=== PATIENT | female | born 1935 | race Asian ===

== ENCOUNTER → 2018-09-19 | Outpatient (CLI) | payer MEDICARE, OTHER ==
[~2018-09-19] MED LIST: ACET-66 PO; AMLO1CAP46 PO; ATEN50TA PO; IBUP-2070 PO; METF-444 PO
[2018-09-19 12:24] LABS: BASOPHILS % (AUTO) 0.8 % (0.0-2.0); EOSINOPHILS % (AUTO) 2.1 % (1.0-6.0); HEMOGLOBIN 15.9 g/dL (12.0-16.0); LYMPHOCYTES # (AUTO) 1.9 K/uL (1.0-4.8); LYMPHOCYTES % (AUTO) 26.7 % (22.0-44.0); MEAN CORPUSCULAR HEMOGLOBIN 33.5 pg (26.0-34.0); MEAN CORPUSCULAR HGB CONC 34.5 G/dL (31.0-37.0); MEAN CORPUSCULAR VOLUME 97 fL (80-100); MONOCYTES # (AUTO) 0.4 K/uL (0.1-1.0); MONOCYTES % (AUTO) 5.8 % (2.0-9.0); NEUTROPHILS # (AUTO) 4.7 K/uL (1.8-7.7); NEUTROPHILS % (AUTO) 64.6 % (40.0-70.0); PLATELET COUNT (AUTO) 306 K/uL (150-450); RED BLOOD CELL COUNT(AUTO) 4.74 MIL/uL (4.00-5.20); RED CELL DISTRIBUTION WIDTH 12.9 % (11.5-14.5)
[2018-09-19 12:51] LABS: ALANINE AMINOTRANSFERASE 21 U/L (12-78); ALKALINE PHOSPHATASE 86 U/L (46-116); ANION GAP 8 mmol/L (8-16); ASPARTATE AMINOTRANSFERASE 22 U/L (15-37); BILIRUBIN,TOTAL 0.7 mg/dL (0.1-1.0); CALCIUM, TOTAL 9.1 mg/dL (8.8-10.5); CARBON DIOXIDE 28 mmol/L (22-29); CHLORIDE 100 mmol/L (98-107); CHOL/HDL RATIO 3.5 (3.9-5.7); CHOLESTEROL 228 mg/dL (131-200); CREATININE 0.76 mg/dL (0.60-1.30); GLOMERULAR FILTR. RATE CALC > 60 mL/min (>60); GLUCOSE,RANDOM 100 mg/dL (70-110); HDL CHOLESTEROL 66 mg/dL (40-60); LDL CHOL (CALC.) 144 mg/dL (0-130); POTASSIUM 3.8 mmol/L (3.5-5.1); SODIUM SERUM 136 mmol/L (136-145); TOTAL PROTEIN, SERUM 8.2 g/dL (6.4-8.2); TRIGLYCERIDES 89 mg/dL (15-150); UREA NITROGEN, BLOOD 13 mg/dL (7-18)
[2018-09-19 12:59] LABS: HEMOGLOBIN A1C 6.6 % (4.5-6.2)
== END | disposition home or self-care (01) ==
LOC: LABPV 11:07
PROVIDERS: ATTEND Internal Medicine
DX: E11.69 Type 2 diabetes mellitus with other specified complication (principal); E78.5 Hyperlipidemia, unspecified
CPT/HCPCS: 82043; 82570; 83036

== ENCOUNTER → 2018-12-16 | Outpatient (CLI) | payer MEDICARE, OTHER ==
[2018-12-16 10:23] LABS: BASOPHILS % (AUTO) 0.8 % (0.0-2.0); EOSINOPHILS % (AUTO) 2.6 % (1.0-6.0); HEMATOCRIT 39.7 % (36-46); HEMOGLOBIN 13.5 g/dL (12.0-16.0); LYMPHOCYTES # (AUTO) 1.5 K/uL (1.0-4.8); LYMPHOCYTES % (AUTO) 23.1 % (22.0-44.0); MEAN CORPUSCULAR HEMOGLOBIN 33.4 pg (26.0-34.0); MEAN CORPUSCULAR VOLUME 98 fL (80-100); MONOCYTES # (AUTO) 0.5 K/uL (0.1-1.0); MONOCYTES % (AUTO) 8.2 % (2.0-9.0); NEUTROPHILS # (AUTO) 4.2 K/uL (1.8-7.7); NEUTROPHILS % (AUTO) 65.3 % (40.0-70.0); PLATELET COUNT (AUTO) 334 K/uL (150-450); RED BLOOD CELL COUNT(AUTO) 4.04 MIL/uL (4.00-5.20); RED CELL DISTRIBUTION WIDTH 12.8 % (11.5-14.5)
[2018-12-16 10:33] LABS: ALANINE AMINOTRANSFERASE 25 U/L (12-78); ALBUMIN 3.6 g/dL (3.4-5.0); ALKALINE PHOSPHATASE 76 U/L (46-116); ANION GAP 6 mmol/L (8-16); ASPARTATE AMINOTRANSFERASE 18 U/L (15-37); BILIRUBIN,TOTAL 0.4 mg/dL (0.1-1.0); CALCIUM, TOTAL 8.7 mg/dL (8.8-10.5); CARBON DIOXIDE 32 mmol/L (22-29); CHLORIDE 103 mmol/L (98-107); CHOL/HDL RATIO 2.9 (3.9-5.7); CHOLESTEROL 172 mg/dL (131-200); CREATININE 0.62 mg/dL (0.60-1.30); GLOMERULAR FILTR. RATE CALC > 60 mL/min (>60); GLUCOSE,RANDOM 184 mg/dL (70-110); HDL CHOLESTEROL 59 mg/dL (40-60); LDL CHOL (CALC.) 93 mg/dL (0-130); POTASSIUM 3.9 mmol/L (3.5-5.1); SODIUM SERUM 141 mmol/L (136-145); TOTAL PROTEIN, SERUM 7.2 g/dL (6.4-8.2); TRIGLYCERIDES 98 mg/dL (15-150); UREA NITROGEN, BLOOD 17 mg/dL (7-18)
[2018-12-16 12:42] LABS: HEMOGLOBIN A1C 7.3 % (4.5-6.2)
== END | disposition home or self-care (01) ==
LOC: LABPV 08:46
PROVIDERS: ATTEND Internal Medicine
DX: E78.5 Hyperlipidemia, unspecified (principal); E11.69 Type 2 diabetes mellitus with other specified complication
CPT/HCPCS: 82043; 82570; 83036

== ENCOUNTER 2019-05-12 13:26 | Inpatient (IN) | payer MEDICARE, OTHER ==
[~2019-05-12] VITALS: Ht 157.5 cm; Wt 51.2 kg
[~2019-05-12 13:26] MED LIST changes: -ACET-66 PO; +AMLO-511 PO; -AMLO1CAP46 PO; -ATEN50TA PO; +BENA10TA12 PO; +CARV6 PO; +FAMO-136 PO; -IBUP-2070 PO
[2019-05-12 13:43] LABS: GLUCOSE,POINT OF CARE 124 MG/DL (70-110)
[2019-05-12] MEDS ORDERED: ACETAMINOPHEN 500 MG TABLET PO ONE (14:15)
[2019-05-12] MEDS ORDERED: SODIUM CHLORIDE 0.9% 1,000 ML IV ONE (14:15)
[2019-05-12 14:48] LABS: BASOPHILS % (AUTO) 0.2 % (0.0-2.0); EOSINOPHILS % (AUTO) 1.2 % (1.0-6.0); HEMATOCRIT 46.4 % (36-46); HEMOGLOBIN 15.3 g/dL (12.0-16.0); LYMPHOCYTES # (AUTO) 1.4 K/uL (1.0-4.8); LYMPHOCYTES % (AUTO) 15.6 % (22.0-44.0); MEAN CORPUSCULAR HEMOGLOBIN 32.2 pg (26.0-34.0); MEAN CORPUSCULAR VOLUME 98 fL (80-100); MONOCYTES # (AUTO) 0.4 K/uL (0.1-1.0); MONOCYTES % (AUTO) 4.4 % (2.0-9.0); NEUTROPHILS % (AUTO) 78.6 % (40.0-70.0); PLATELET COUNT (AUTO) 312 K/uL (150-450); RED BLOOD CELL COUNT(AUTO) 4.76 MIL/uL (4.00-5.20)
[2019-05-12 15:25] LABS: APPEARANCE,URINE CLOUDY (CLEAR); GLUCOSE, URINE (UA) NEGATIVE (NEGATIVE); KETONES,URINE TRACE mg/dL (NEGATIVE); LEUKOCYTE ESTERASE ,URINE SMALL (NEGATIVE); NITRATE,URINE NEGATIVE (NEGATIVE); OCCULT BLOOD,URINE NEGATIVE (NEGATIVE); PROTEIN,URINE NEGATIVE (NEGATIVE)
[2019-05-12 15:26] LABS: BILIRUBIN,URINE PRELIM. POSITIVE (NEGATIVE)
[2019-05-12 15:30] LABS: CALCIUM, TOTAL 9.7 mg/dL (8.8-10.5); CREATININE 1.38 mg/dL (0.60-1.30); POTASSIUM 4.7 mmol/L (3.5-5.1)
[2019-05-12 15:34] LABS: BACTERIA,URINE Rare /HPF (None Seen); WBC,URINE 0-2 /HPF (0-5)
[2019-05-12 15:35] LABS: RBC,URINE 0-2 /HPF (0-2); SQUAMOUS EPITHELIAL CELL,UR Few /LPF (None Seen)
[2019-05-12 15:36] LABS: LACTIC ACID 1.2 mmol/L (0.4-2.0)
[2019-05-12 15:42] LABS: ALBUMIN 4.4 g/dL (3.4-5.0); BILIRUBIN,TOTAL 0.9 mg/dL (0.1-1.0); TOTAL PROTEIN, SERUM 8.5 g/dL (6.4-8.2)
[2019-05-12] MEDS ORDERED: MAGNESIUM HYDROXIDE SUSPENSION 30 ML UDCUP PO PRN (16:00)
[2019-05-12] MEDS ORDERED: ONDANSETRON HCL 4 MG/2 ML VIAL IVP PRN (16:00)
[2019-05-12] MEDS ORDERED: ACETAMINOPHEN 325 MG TABLET PO PRN ×2 (16:00)
[2019-05-12] MEDS ORDERED: INSULIN LISPRO 100 UNITS/ML SQ PRN (16:00)
[2019-05-12] MEDS ORDERED: DEXTROSE 50%-WATER 25 GM/50 ML SYRINGE IVP PRN (16:00)
[2019-05-12] MEDS ORDERED: 0.9% SODIUM CHLORIDE 10 ML SYRINGE IVP PRN (16:00)
[2019-05-12] MEDS ORDERED: SODIUM CHLORIDE 0.45% 1,000 ML IV ONE (16:15)
[2019-05-12 16:51] VITALS: BP 114/66
[2019-05-12 16:52] VITALS: BP 114/66
[2019-05-12 17:14] LABS: GLUCOMETER DEV NAME(LOC) AHU.; GLUCOSE,POINT OF CARE 88 MG/DL (70-110)
[2019-05-12 21:00] VITALS: BP 147/50
[2019-05-12] MEDS: DOCUSATE SODIUM 100 MG CAPSULE PO SCH (22:02)
[2019-05-12] MEDS: HEPARIN SODIUM,PORCINE 5,000 UNITS/ML VIAL SQ SCH (22:04)
[2019-05-13 00:03] VITALS: BP 128/70
[2019-05-13 04:05] VITALS: BP 140/81
[2019-05-13] MEDS ORDERED: PNEUMOCOCCAL VACCINE POLYVALENT 0.5 ML VIAL [PPSV23] IM ONE (05:45)
[2019-05-13 06:15] LABS: ANION GAP 10 mmol/L (8-16); CALCIUM, TOTAL 8.6 mg/dL (8.8-10.5); CARBON DIOXIDE 22 mmol/L (22-29); CHLORIDE 105 mmol/L (98-107); CREATININE 0.82 mg/dL (0.60-1.30); GLOMERULAR FILTR. RATE CALC > 60 mL/min (>60); GLUCOSE,RANDOM 85 mg/dL (70-110); POTASSIUM 3.9 mmol/L (3.5-5.1); SODIUM SERUM 137 mmol/L (136-145); UREA NITROGEN, BLOOD 39 mg/dL (7-18)
[2019-05-13 07:09] LABS: GLUCOMETER DEV NAME(LOC) 5S.1; GLUCOSE,POINT OF CARE 99 MG/DL (70-110)
[2019-05-13 07:10] LABS: GLUCOMETER DEV NAME(LOC) 5S.1; GLUCOSE,POINT OF CARE 85 MG/DL (70-110)
[2019-05-13 07:53] VITALS: BP 153/68
[2019-05-13] MEDS: HEPARIN SODIUM,PORCINE 5,000 UNITS/ML VIAL SQ SCH (08:28)
[2019-05-13] MEDS: DOCUSATE SODIUM 100 MG CAPSULE PO SCH (08:28)
[2019-05-13] MEDS ORDERED: FAMOTIDINE 20 MG TABLET PO SCH (09:00)
[2019-05-13] MEDS ORDERED: ASPIRIN 81 MG CHEWABLE TABLET PO SCH (09:00)
[2019-05-13 11:00] VITALS: BP 138/62
[2019-05-13] MEDS ORDERED: AmLODIPine BESYLATE 5 MG TABLET PO SCH (12:00)
[2019-05-13 13:44] LABS: GLUCOMETER DEV NAME(LOC) 5S.1; GLUCOSE,POINT OF CARE 94 MG/DL (70-110)
[2019-05-13 15:27] VITALS: BP 137/71
[2019-05-13 20:17] LABS: GLUCOMETER DEV NAME(LOC) 5S.1; GLUCOSE,POINT OF CARE 87 MG/DL (70-110)
== END 2019-05-13 18:00 | disposition home or self-care (01) | DRG 682 ==
LOC: EMS 13:26 → AHU 16:15 → 5S 20:28
PROVIDERS: ADMIT Internal Medicine; ATTEND Internal Medicine
DX: N17.9 Acute kidney failure, unspecified (principal); K85.90 Acute pancreatitis without necrosis or infection, unspecified; F03.90 Unspecified dementia, unspecified severity, without behavioral disturbance, psychotic disturbance, mood disturbance, and anxiety; I49.5 Sick sinus syndrome; R62.7 Adult failure to thrive; E11.9 Type 2 diabetes mellitus without complications; G43.909 Migraine, unspecified, not intractable, without status migrainosus; I10 Essential (primary) hypertension; T46.4X5A Adverse effect of angiotensin-converting-enzyme inhibitors, initial encounter; Z82.49 Family history of ischemic heart disease and other diseases of the circulatory system; Z83.3 Family history of diabetes mellitus; Z68.20 Body mass index [BMI] 20.0-20.9, adult; Y92.89 Other specified places as the place of occurrence of the external cause; Z86.73 Personal history of transient ischemic attack (TIA), and cerebral infarction without residual deficits
CPT/HCPCS: 51701; 70450; 83605; 87040; 93005; G0378; J1644; J7030

== ENCOUNTER 2020-08-08 21:14 | Inpatient (IN) | payer MEDICARE, OTHER ==
[~2020-08-08] VITALS: Ht 152.4 cm; Wt 68.2 kg
[~2020-08-08 21:14] MED LIST changes: +AMLO-257 PO; -AMLO-511 PO; -BENA10TA12 PO; -CARV6 PO
[2020-08-08 21:35] LABS: GLUCOSE,POINT OF CARE 148 MG/DL (70-110)
[2020-08-08 23:59] LABS: BASOPHILS % (AUTO) 0.6 % (0.0-2.0); HEMATOCRIT 41.4 % (36-46); HEMOGLOBIN 14.1 g/dL (12.0-16.0); LYMPHOCYTES # (AUTO) 1.8 K/uL (1.0-4.8); LYMPHOCYTES % (AUTO) 26.9 % (22.0-44.0); MEAN CORPUSCULAR HEMOGLOBIN 33.5 pg (26.0-34.0); MEAN CORPUSCULAR HGB CONC 34.1 G/dL (31.0-37.0); MEAN CORPUSCULAR VOLUME 98 fL (80-100); MONOCYTES # (AUTO) 0.5 K/uL (0.1-1.0); MONOCYTES % (AUTO) 7.6 % (2.0-9.0); NEUTROPHILS # (AUTO) 4.2 K/uL (1.8-7.7); NEUTROPHILS % (AUTO) 62.9 % (40.0-70.0); PLATELET COUNT (AUTO) 285 K/uL (150-450); RED BLOOD CELL COUNT(AUTO) 4.22 MIL/uL (4.00-5.20); RED CELL DISTRIBUTION WIDTH 12.8 % (11.5-14.5)
[2020-08-09] MEDS ORDERED: ASPIRIN 81 MG CHEWABLE TABLET PO ONE
[2020-08-09] MEDS ORDERED: SODIUM CHLORIDE 0.9% 1,000 ML IV ONE
[2020-08-09] MEDS ORDERED: INSULIN LISPRO 100 UNITS/ML SQ PRN
[2020-08-09] MEDS ORDERED: ACETAMINOPHEN 325 MG TABLET PO PRN
[2020-08-09] MEDS ORDERED: ONDANSETRON HCL 4 MG/2 ML VIAL IVP ONE
[2020-08-09] MEDS ORDERED: DEXTROSE 50%-WATER 25 GM/50 ML SYRINGE IVP PRN
[2020-08-09 00:16] LABS: ALANINE AMINOTRANSFERASE 25 U/L (12-78); ALKALINE PHOSPHATASE 69 U/L (46-116); ANION GAP 7 mmol/L (8-16); ASPARTATE AMINOTRANSFERASE 19 U/L (15-37); BILIRUBIN,TOTAL 0.7 mg/dL (0.1-1.0); CALCIUM, TOTAL 9.4 mg/dL (8.8-10.5); CARBON DIOXIDE 30 mmol/L (22-29); CHLORIDE 105 mmol/L (98-107); CREATININE 0.86 mg/dL (0.60-1.30); GLUCOSE,RANDOM 116 mg/dL (70-110); LIPASE 294 U/L (73-393); SODIUM SERUM 142 mmol/L (136-145); TOTAL PROTEIN, SERUM 7.9 g/dL (6.4-8.2); UREA NITROGEN, BLOOD 28 mg/dL (7-18)
[2020-08-09 00:19] LABS: GLOMERULAR FILTR. RATE CALC > 60 mL/min (>60)
[2020-08-09 00:20] LABS: POTASSIUM 2.8 mmol/L (3.5-5.1)
[2020-08-09] MEDS ORDERED: POTASSIUM CHLORIDE 10% 40 MEQ/30 ML LIQUID UDCUP PO ONE (00:30)
[2020-08-09 01:04] LABS: APPEARANCE,URINE CLEAR (CLEAR); GLUCOSE, URINE (UA) NEGATIVE (NEGATIVE); KETONES,URINE 15 mg/dL (NEGATIVE); LEUKOCYTE ESTERASE ,URINE SMALL (NEGATIVE); NITRATE,URINE NEGATIVE (NEGATIVE); OCCULT BLOOD,URINE TRACE (NEGATIVE); PH,URINE 5.5 (5.0-8.0); PROTEIN,URINE POS 1+ (NEGATIVE)
[2020-08-09 01:09] LABS: BILIRUBIN,URINE PRELIM. POSITIVE (NEGATIVE)
[2020-08-09 01:22] LABS: BACTERIA,URINE None Seen /HPF (None Seen); RBC,URINE 0-2 /HPF (0-2); SQUAMOUS EPITHELIAL CELL,UR Moderate /LPF (None Seen)
[2020-08-09] MEDS ORDERED: CefTRIAXone 1 GM/DEXTROSE 50 ML IV ONE (01:30)
[2020-08-09] MEDS ORDERED: LORazepam 2 MG/ML VIAL IVP ONE (02:45)
[2020-08-09] MEDS ORDERED: HALOPERIDOL LACTATE 5 MG/ML VIAL IVP ONE (04:15)
[2020-08-09] MEDS ORDERED: DiphenhydrAMINE HCL 50 MG/ML VIAL IVP ONE (04:15)
[2020-08-09 08:34] LABS: ANION GAP 6 mmol/L (8-16); CALCIUM, TOTAL 8.3 mg/dL (8.8-10.5); CARBON DIOXIDE 27 mmol/L (22-29); CHLORIDE 108 mmol/L (98-107); CREATININE 0.66 mg/dL (0.60-1.30); GLUCOSE,RANDOM 123 mg/dL (70-110); SODIUM SERUM 141 mmol/L (136-145); UREA NITROGEN, BLOOD 18 mg/dL (7-18)
[2020-08-09 08:35] LABS: GLOMERULAR FILTR. RATE CALC > 60 mL/min (>60); POTASSIUM 2.8 mmol/L (3.5-5.1)
[2020-08-09] MEDS ORDERED: ASPIRIN 81 MG CHEWABLE TABLET PO SCH (09:00)
[2020-08-09] MEDS ORDERED: FAMOTIDINE 20 MG TABLET PO SCH (09:00)
[2020-08-09] MEDS ORDERED: POTASSIUM CHLORIDE 20 MEQ ER TABLET PO PRN (09:00)
[2020-08-09] MEDS ORDERED: DOCUSATE SODIUM 100 MG CAPSULE PO SCH (09:00)
[2020-08-09] MEDS ORDERED: HEPARIN SODIUM,PORCINE 5,000 UNITS/ML VIAL SQ SCH (09:00)
[2020-08-09] MEDS ORDERED: AmLODIPine BESYLATE 5 MG TABLET PO SCH (09:00)
[2020-08-09] MEDS: POTASSIUM CHL 10 MEQ/WATER 50 ML IV PRN ×4 (09:31→13:04)
[2020-08-09 14:49] LABS: ANION GAP 4 mmol/L (8-16); CALCIUM, TOTAL 8.4 mg/dL (8.8-10.5); CARBON DIOXIDE 25 mmol/L (22-29); CHLORIDE 110 mmol/L (98-107); CREATININE 0.66 mg/dL (0.60-1.30); GLUCOSE,RANDOM 90 mg/dL (70-110); POTASSIUM 4.5 mmol/L (3.5-5.1); SODIUM SERUM 139 mmol/L (136-145); UREA NITROGEN, BLOOD 17 mg/dL (7-18)
[2020-08-09 14:50] LABS: GLOMERULAR FILTR. RATE CALC > 60 mL/min (>60)
[2020-08-09 15:38] VITALS: BP 168/91
[2020-08-09 15:53] LABS: GLUCOSE,POINT OF CARE 91 MG/DL (70-110)
[2020-08-10] MEDS ORDERED: CefTRIAXone 1 GM/DEXTROSE 50 ML IV SCH (01:00)
== END 2020-08-09 18:00 | disposition home or self-care (01) | DRG 313 ==
LOC: EMS 21:14 → AHU 23:50 → UNDOADMIN 08-09 16:36
PROVIDERS: ADMIT Internal Medicine; ATTEND Internal Medicine
DX: R07.9 Chest pain, unspecified (principal); N39.0 Urinary tract infection, site not specified; E11.9 Type 2 diabetes mellitus without complications; E87.6 Hypokalemia; F03.90 Unspecified dementia, unspecified severity, without behavioral disturbance, psychotic disturbance, mood disturbance, and anxiety; R62.7 Adult failure to thrive; I10 Essential (primary) hypertension; Z83.3 Family history of diabetes mellitus; Z82.49 Family history of ischemic heart disease and other diseases of the circulatory system; Z68.29 Body mass index [BMI] 29.0-29.9, adult; Z79.899 Other long term (current) drug therapy; Z79.84 Long term (current) use of oral hypoglycemic drugs; Z03.818 Encounter for observation for suspected exposure to other biological agents ruled out
CPT/HCPCS: 83735; 87086; 87426; 93005; 93306; G0378; J0696; J1200; J1630; J1644; J2060; J2405; J3480; J7030; 36415-L1; 36415-TC; 71045-TC

== ENCOUNTER 2022-04-17 10:56 | Inpatient (IN) | payer MEDICARE, OTHER ==
[~2022-04-17] VITALS: Ht 152.4 cm; Wt 52.3 kg
[~2022-04-17 10:56] MED LIST changes: +ALEN70TA65 PO; -AMLO-257 PO; +AMLO-258 PO; +BENA20TA83 PO; +DICL100G51 TP; +DONE-51 PO; +KETO15CR2 TP; +MULT-1387 PO
[2022-04-17 11:57] LABS: GLUCOMETER DEV NAME(LOC) ERT.5; GLUCOSE,POINT OF CARE 140 MG/DL (70-110)
[2022-04-17] MEDS ORDERED: SODIUM CHLORIDE 0.9% 1,000 ML IV ONE ×2 (12:15→14:15)
[2022-04-17 13:03] LABS: COVID AG,FIA SOURCE NASOPHARYNGEAL
[2022-04-17 13:05] LABS: BASOPHILS % (AUTO) 0.4 % (0.0-2.0); HEMATOCRIT 45.3 % (36-46); HEMOGLOBIN 14.5 g/dL (12.0-16.0); LYMPHOCYTES % (AUTO) 6.3 % (22.0-44.0); MEAN CORPUSCULAR HEMOGLOBIN 31.9 pg (26.0-34.0); MEAN CORPUSCULAR HGB CONC 32.1 G/dL (31.0-37.0); MEAN CORPUSCULAR VOLUME 99 fL (80-100); MONOCYTES # (AUTO) 0.9 K/uL (0.1-1.0); MONOCYTES % (AUTO) 5.7 % (2.0-9.0); NEUTROPHILS # (AUTO) 13.1 K/uL (1.8-7.7); NEUTROPHILS % (AUTO) 83.6 % (40.0-70.0); PLATELET COUNT (AUTO) 314 K/uL (150-450); RED BLOOD CELL COUNT(AUTO) 4.56 MIL/uL (4.00-5.20); RED CELL DISTRIBUTION WIDTH 16.6 % (11.5-14.5)
[2022-04-17 13:23] LABS: ANION GAP 9 mmol/L (8-16); CALCIUM, TOTAL 9.2 mg/dL (8.8-10.5); CARBON DIOXIDE 32 mmol/L (22-29); CHLORIDE 115 mmol/L (98-107); CREATININE 1.13 mg/dL (0.60-1.30); GLOMERULAR FILTR. RATE CALC 46 mL/min (>60); GLUCOSE,RANDOM 138 mg/dL (70-110); POTASSIUM 4.6 mmol/L (3.5-5.1); SODIUM SERUM 156 mmol/L (136-145); UREA NITROGEN, BLOOD 50 mg/dL (7-18)
[2022-04-17 13:29] LABS: ALANINE AMINOTRANSFERASE 52 U/L (12-78); ALBUMIN 2.8 g/dL (3.4-5.0); ALKALINE PHOSPHATASE 70 U/L (46-116); ASPARTATE AMINOTRANSFERASE 22 U/L (15-37); BILIRUBIN,TOTAL 0.9 mg/dL (0.1-1.0); TOTAL PROTEIN, SERUM 7.4 g/dL (6.4-8.2)
[2022-04-17 13:30] LABS: INFLUENZA TYPE A NEGATIVE FOR TYPE A (NEGATIVE); INFLUENZA TYPE B NEGATIVE FOR TYPE B (NEGATIVE)
[2022-04-17 13:38] LABS: B-TYPE NATRIURETIC PEPTIDE 60 pg/mL (0-100); LACTIC ACID 2.6 mmol/L (0.4-2.0)
[2022-04-17] MEDS ORDERED: CefTRIAXone 1 GM/DEXTROSE 50 ML IV ONE (14:30)
[2022-04-17] MEDS ORDERED: DEXTROSE 50%-WATER 25 GM/50 ML SYRINGE IVP PRN (15:30)
[2022-04-17] MEDS ORDERED: MAGNESIUM HYDROXIDE SUSPENSION 30 ML UDCUP PO PRN (15:45)
[2022-04-17] MEDS ORDERED: ACETAMINOPHEN 325 MG TABLET PO PRN (15:45)
[2022-04-17] MEDS: DEXTROSE 5%-WATER 1,000 ML IV SCH (15:59)
[2022-04-17] MEDS: HEPARIN SODIUM,PORCINE 5,000 UNITS/ML VIAL SQ SCH ×2 (16:15→23:42)
[2022-04-17 17:05] VITALS: BP 137/73
[2022-04-17 20:01] LABS: GLUCOMETER DEV NAME(LOC) 6N.1; GLUCOSE,POINT OF CARE 113 MG/DL (70-110)
[2022-04-17 20:20] VITALS: BP 134/74
[2022-04-17] MEDS: DOCUSATE SODIUM 100 MG CAPSULE PO SCH (20:24)
[2022-04-17 23:42] LABS: GLUCOMETER DEV NAME(LOC) 6N.1; GLUCOSE,POINT OF CARE 122 MG/DL (70-110)
[2022-04-18 03:49] LABS: APPEARANCE,URINE CLEAR (CLEAR); BILIRUBIN,URINE NEGATIVE (NEGATIVE); GLUCOSE, URINE (UA) NEGATIVE (NEGATIVE); KETONES,URINE NEGATIVE (NEGATIVE); LEUKOCYTE ESTERASE ,URINE SMALL (NEGATIVE); NITRATE,URINE NEGATIVE (NEGATIVE); OCCULT BLOOD,URINE NEGATIVE (NEGATIVE); PH,URINE 6.5 (5.0-8.0); PROTEIN,URINE TRACE mg/dL (NEGATIVE); SPECIFIC GRAVITIY, URINE 1.028 (1.003-1.030); UROBILINOGEN,URINE <=1.0 mg/dL (<=1.0)
[2022-04-18 03:58] LABS: RBC,URINE None Seen /HPF (0-2)
[2022-04-18 03:59] LABS: BACTERIA,URINE None Seen /HPF (None Seen)
[2022-04-18 04:19] VITALS: BP 147/78
[2022-04-18 07:52] VITALS: BP 152/71
[2022-04-18 08:11] LABS: GLUCOMETER DEV NAME(LOC) 6N.2; GLUCOSE,POINT OF CARE 102 MG/DL (70-110)
[2022-04-18] MEDS: DOCUSATE SODIUM 100 MG CAPSULE PO SCH ×2 (09:00→20:00)
[2022-04-18] MEDS: AmLODIPine BESYLATE 10 MG TABLET PO SCH (09:17)
[2022-04-18] MEDS: FAMOTIDINE 20 MG TABLET PO SCH (09:18)
[2022-04-18] MEDS: HEPARIN SODIUM,PORCINE 5,000 UNITS/ML VIAL SQ SCH ×3 (09:18→23:23)
[2022-04-18 09:37] LABS: BASOPHILS % (AUTO) 0.3 % (0.0-2.0); EOSINOPHILS % (AUTO) 9.1 % (1.0-6.0); HEMATOCRIT 41.7 % (36-46); HEMOGLOBIN 13.4 g/dL (12.0-16.0); LYMPHOCYTES # (AUTO) 1.2 K/uL (1.0-4.8); MEAN CORPUSCULAR HEMOGLOBIN 31.7 pg (26.0-34.0); MEAN CORPUSCULAR VOLUME 99 fL (80-100); MONOCYTES # (AUTO) 0.9 K/uL (0.1-1.0); MONOCYTES % (AUTO) 5.6 % (2.0-9.0); PLATELET COUNT (AUTO) 249 K/uL (150-450); RED BLOOD CELL COUNT(AUTO) 4.22 MIL/uL (4.00-5.20); RED CELL DISTRIBUTION WIDTH 16.3 % (11.5-14.5)
[2022-04-18 09:47] LABS: ANION GAP 5 mmol/L (8-16); CALCIUM, TOTAL 8.1 mg/dL (8.8-10.5); CARBON DIOXIDE 29 mmol/L (22-29); CHLORIDE 114 mmol/L (98-107); CREATININE 0.51 mg/dL (0.60-1.30); GLOMERULAR FILTR. RATE CALC > 60 mL/min (>60); GLUCOSE,RANDOM 118 mg/dL (70-110); POTASSIUM 3.5 mmol/L (3.5-5.1); SODIUM SERUM 148 mmol/L (136-145); UREA NITROGEN, BLOOD 27 mg/dL (7-18)
[2022-04-18] MEDS: DEXTROSE 5%-WATER 1,000 ML IV SCH (11:53)
[2022-04-18 14:27] LABS: GLUCOMETER DEV NAME(LOC) 6N.1; GLUCOSE,POINT OF CARE 98 MG/DL (70-110)
[2022-04-18 15:39] VITALS: BP 135/82
[2022-04-18 19:34] VITALS: BP 119/67
[2022-04-18] MEDS: INSULIN LISPRO 100 UNITS/ML SQ PRN (20:15)
[2022-04-19 04:20] VITALS: BP 136/69
[2022-04-19 04:51] LABS: GLUCOMETER DEV NAME(LOC) 6N.2; GLUCOSE,POINT OF CARE 164 MG/DL (70-110)
[2022-04-19 04:51] LABS: GLUCOMETER DEV NAME(LOC) 6N.2; GLUCOSE,POINT OF CARE 148 MG/DL (70-110)
[2022-04-19 06:36] LABS: GLUCOMETER DEV NAME(LOC) 6N.1; GLUCOSE,POINT OF CARE 140 MG/DL (70-110)
[2022-04-19 08:41] VITALS: BP 141/75
[2022-04-19] MEDS: MULTIVITAMINS, THERAPEUTIC TABLET PO SCH (08:49)
[2022-04-19] MEDS: AmLODIPine BESYLATE 10 MG TABLET PO SCH (08:49)
[2022-04-19] MEDS: DOCUSATE SODIUM 100 MG CAPSULE PO SCH ×2 (08:49→21:58)
[2022-04-19] MEDS: HEPARIN SODIUM,PORCINE 5,000 UNITS/ML VIAL SQ SCH ×3 (08:50→23:47)
[2022-04-19] MEDS: FAMOTIDINE 20 MG TABLET PO SCH (08:50)
[2022-04-19] MEDS: DEXTROSE 5%-WATER 1,000 ML IV SCH (08:51)
[2022-04-19 15:47] VITALS: BP 105/65
[2022-04-19] MEDS: NYSTATIN 500,000 UNITS/5 ML SUSPENSION UDCUP PO SCH ×2 (16:35→23:46)
[2022-04-19] MEDS: INSULIN LISPRO 100 UNITS/ML SQ PRN (17:28)
[2022-04-19 20:00] VITALS: BP 127/87
[2022-04-19 20:11] LABS: GLUCOMETER DEV NAME(LOC) 6N.2; GLUCOSE,POINT OF CARE 116 MG/DL (70-110)
[2022-04-19 20:11] LABS: GLUCOMETER DEV NAME(LOC) 6N.2; GLUCOSE,POINT OF CARE 172 MG/DL (70-110)
[2022-04-20 05:23] VITALS: BP 139/73
[2022-04-20 05:31] LABS: GLUCOMETER DEV NAME(LOC) 6N.1; GLUCOSE,POINT OF CARE 136 MG/DL (70-110)
[2022-04-20] MEDS: DEXTROSE 5%-WATER 1,000 ML IV SCH ×2 (06:09→23:34)
[2022-04-20 08:08] VITALS: BP 128/71
[2022-04-20 08:09] LABS: ANION GAP 8 mmol/L (8-16); CALCIUM, TOTAL 8.4 mg/dL (8.8-10.5); CARBON DIOXIDE 27 mmol/L (22-29); CHLORIDE 109 mmol/L (98-107); CREATININE 0.47 mg/dL (0.60-1.30); GLUCOSE,RANDOM 108 mg/dL (70-110); POTASSIUM 3.4 mmol/L (3.5-5.1); SODIUM SERUM 144 mmol/L (136-145); UREA NITROGEN, BLOOD 19 mg/dL (7-18)
[2022-04-20 08:10] LABS: GLOMERULAR FILTR. RATE CALC > 60 mL/min (>60)
[2022-04-20] MEDS: NYSTATIN 500,000 UNITS/5 ML SUSPENSION UDCUP PO SCH ×3 (09:30→23:28)
[2022-04-20] MEDS: AmLODIPine BESYLATE 10 MG TABLET PO SCH (09:31)
[2022-04-20] MEDS: HEPARIN SODIUM,PORCINE 5,000 UNITS/ML VIAL SQ SCH ×3 (09:31→23:28)
[2022-04-20] MEDS: FAMOTIDINE 20 MG TABLET PO SCH (09:31)
[2022-04-20] MEDS: DOCUSATE SODIUM 100 MG CAPSULE PO SCH ×2 (09:31→20:20)
[2022-04-20] MEDS: MULTIVITAMINS, THERAPEUTIC TABLET PO SCH (09:31)
[2022-04-20] MEDS: INSULIN LISPRO 100 UNITS/ML SQ PRN ×2 (12:38→17:17)
[2022-04-20] MEDS ORDERED: POTASSIUM CHLORIDE 20 MEQ ER TABLET PO PRN (14:15)
[2022-04-20 16:35] VITALS: BP 142/67
[2022-04-20] MEDS ORDERED: SODIUM CHLORIDE 0.9% 500 ML IV ONE (16:55)
[2022-04-20] MEDS: POTASSIUM CHL 10 MEQ/WATER 50 ML IV PRN ×3 (16:59→23:50)
[2022-04-20 20:01] LABS: GLUCOMETER DEV NAME(LOC) 6N.1; GLUCOSE,POINT OF CARE 102 MG/DL (70-110)
[2022-04-20 20:01] LABS: GLUCOMETER DEV NAME(LOC) 6N.1; GLUCOSE,POINT OF CARE 136 MG/DL (70-110)
[2022-04-20 20:35] VITALS: BP 105/66
[2022-04-20 23:36] LABS: GLUCOMETER DEV NAME(LOC) 6N.2; GLUCOSE,POINT OF CARE 138 MG/DL (70-110)
[2022-04-20 23:36] LABS: GLUCOMETER DEV NAME(LOC) 6N.1; GLUCOSE,POINT OF CARE 124 MG/DL (70-110)
[2022-04-21 04:06] VITALS: BP 127/70
[2022-04-21 06:27] LABS: GLUCOMETER DEV NAME(LOC) 6N.2; GLUCOSE,POINT OF CARE 109 MG/DL (70-110)
[2022-04-21 07:09] LABS: ANION GAP 5 mmol/L (8-16); CALCIUM, TOTAL 8.4 mg/dL (8.8-10.5); CARBON DIOXIDE 31 mmol/L (22-29); CHLORIDE 109 mmol/L (98-107); CREATININE 0.42 mg/dL (0.60-1.30); GLUCOSE,RANDOM 111 mg/dL (70-110); PHOSPHORUS 2.1 mg/dL (2.5-4.9); POTASSIUM 3.6 mmol/L (3.5-5.1); SODIUM SERUM 145 mmol/L (136-145); UREA NITROGEN, BLOOD 10 mg/dL (7-18)
[2022-04-21 07:10] LABS: GLOMERULAR FILTR. RATE CALC > 60 mL/min (>60)
[2022-04-21 08:11] VITALS: BP 130/68
[2022-04-21] MEDS: DOCUSATE SODIUM 100 MG CAPSULE PO SCH ×2 (09:18→20:57)
[2022-04-21] MEDS: NYSTATIN 500,000 UNITS/5 ML SUSPENSION UDCUP PO SCH ×3 (09:18→23:50)
[2022-04-21] MEDS: AmLODIPine BESYLATE 10 MG TABLET PO SCH (09:19)
[2022-04-21] MEDS: HEPARIN SODIUM,PORCINE 5,000 UNITS/ML VIAL SQ SCH ×3 (09:19→23:50)
[2022-04-21] MEDS: FAMOTIDINE 20 MG TABLET PO SCH (09:19)
[2022-04-21] MEDS: MULTIVITAMINS, THERAPEUTIC TABLET PO SCH (09:19)
[2022-04-21 13:31] LABS: GLUCOMETER DEV NAME(LOC) 6N.1; GLUCOSE,POINT OF CARE 112 MG/DL (70-110)
[2022-04-21] MEDS: IPRATROPIUM BROMIDE 0.5 MG/2.5 ML NEB SOLUTION NEB SCH (14:00)
[2022-04-21] MEDS ORDERED: IPRATROPIUM BROMIDE 0.5 MG/2.5 ML NEB SOLUTION NEB ONE (15:15)
[2022-04-21 15:54] VITALS: BP 124/60
[2022-04-21 16:17] VITALS: BP 134/70
[2022-04-21 18:12] LABS: GLUCOMETER DEV NAME(LOC) 6N.2; GLUCOSE,POINT OF CARE 160 MG/DL (70-110)
[2022-04-21 18:12] LABS: GLUCOMETER DEV NAME(LOC) 6N.2; GLUCOSE,POINT OF CARE 170 MG/DL (70-110)
[2022-04-21 20:11] VITALS: BP 121/74
[2022-04-21] MEDS: DEXTROSE 5%-WATER 1,000 ML IV SCH (20:57)
[2022-04-21 23:51] LABS: GLUCOMETER DEV NAME(LOC) 6N.1; GLUCOSE,POINT OF CARE 123 MG/DL (70-110)
[2022-04-22 00:42] VITALS: BP 131/73
[2022-04-22 06:36] LABS: GLUCOMETER DEV NAME(LOC) 6N.2; GLUCOSE,POINT OF CARE 130 MG/DL (70-110)
[2022-04-22 07:38] VITALS: BP 119/72
[2022-04-22] MEDS: HEPARIN SODIUM,PORCINE 5,000 UNITS/ML VIAL SQ SCH ×3 (08:00→16:00)
[2022-04-22] MEDS: NYSTATIN 500,000 UNITS/5 ML SUSPENSION UDCUP PO SCH ×3 (08:00→16:00)
[2022-04-22] MEDS: IPRATROPIUM BROMIDE 0.5 MG/2.5 ML NEB SOLUTION NEB SCH ×4 (08:00→19:06)
[2022-04-22] MEDS: DOCUSATE SODIUM 100 MG CAPSULE PO SCH ×3 (09:00→21:00)
[2022-04-22] MEDS: FAMOTIDINE 20 MG TABLET PO SCH (09:46)
[2022-04-22] MEDS: MULTIVITAMINS, THERAPEUTIC TABLET PO SCH (09:46)
[2022-04-22] MEDS: AmLODIPine BESYLATE 10 MG TABLET PO SCH (09:46)
[2022-04-22 13:32] LABS: GLUCOMETER DEV NAME(LOC) 6N.2; GLUCOSE,POINT OF CARE 106 MG/DL (70-110)
[2022-04-22 16:04] VITALS: BP 127/71
[2022-04-22] MEDS: DEXTROSE 5%-WATER 1,000 ML IV SCH (16:13)
[2022-04-22 17:56] LABS: GLUCOMETER DEV NAME(LOC) 6N.1; GLUCOSE,POINT OF CARE 139 MG/DL (70-110)
[2022-04-22 19:48] VITALS: BP 119/71
[2022-04-22 22:16] LABS: GLUCOMETER DEV NAME(LOC) 6N.2; GLUCOSE,POINT OF CARE 105 MG/DL (70-110)
[2022-04-23] MEDS: NYSTATIN 500,000 UNITS/5 ML SUSPENSION UDCUP PO SCH ×3 (00:02→15:40)
[2022-04-23] MEDS: HEPARIN SODIUM,PORCINE 5,000 UNITS/ML VIAL SQ SCH ×3 (00:02→15:41)
[2022-04-23 04:05] VITALS: BP 123/64
[2022-04-23 04:36] LABS: GLUCOMETER DEV NAME(LOC) 6N.1; GLUCOSE,POINT OF CARE 103 MG/DL (70-110)
[2022-04-23] MEDS: IPRATROPIUM BROMIDE 0.5 MG/2.5 ML NEB SOLUTION NEB SCH ×3 (07:24→19:53)
[2022-04-23 07:55] VITALS: BP 112/60
[2022-04-23] MEDS: AmLODIPine BESYLATE 10 MG TABLET PO SCH (08:31)
[2022-04-23] MEDS: DOCUSATE SODIUM 100 MG CAPSULE PO SCH ×2 (08:33→21:00)
[2022-04-23] MEDS: FAMOTIDINE 20 MG TABLET PO SCH (08:33)
[2022-04-23] MEDS: MULTIVITAMINS, THERAPEUTIC TABLET PO SCH (08:33)
[2022-04-23] MEDS: DEXTROSE 5%-WATER 1,000 ML IV SCH (11:35)
[2022-04-23 13:31] LABS: GLUCOMETER DEV NAME(LOC) 6N.2; GLUCOSE,POINT OF CARE 96 MG/DL (70-110)
[2022-04-23 15:50] VITALS: BP 111/58
[2022-04-23 19:16] LABS: GLUCOMETER DEV NAME(LOC) 6N.2; GLUCOSE,POINT OF CARE 146 MG/DL (70-110)
[2022-04-23 20:14] VITALS: BP 120/65
[2022-04-23 23:31] LABS: GLUCOMETER DEV NAME(LOC) 6N.2; GLUCOSE,POINT OF CARE 117 MG/DL (70-110)
[2022-04-24] MEDS: HEPARIN SODIUM,PORCINE 5,000 UNITS/ML VIAL SQ SCH ×3 (00:15→15:16)
[2022-04-24] MEDS: NYSTATIN 500,000 UNITS/5 ML SUSPENSION UDCUP PO SCH ×3 (00:15→15:16)
[2022-04-24] MEDS: IPRATROPIUM BROMIDE 0.5 MG/2.5 ML NEB SOLUTION NEB SCH ×2 (03:22→14:08)
[2022-04-24 04:29] VITALS: BP 135/61
[2022-04-24] MEDS: DEXTROSE 5%-WATER 1,000 ML IV SCH (07:05)
[2022-04-24 07:16] LABS: GLUCOMETER DEV NAME(LOC) 6N.2; GLUCOSE,POINT OF CARE 118 MG/DL (70-110)
[2022-04-24 08:01] VITALS: BP 121/65
[2022-04-24] MEDS: FAMOTIDINE 20 MG TABLET PO SCH (08:13)
[2022-04-24] MEDS: AmLODIPine BESYLATE 10 MG TABLET PO SCH (08:13)
[2022-04-24] MEDS: MULTIVITAMINS, THERAPEUTIC TABLET PO SCH (08:13)
[2022-04-24] MEDS: DOCUSATE SODIUM 100 MG CAPSULE PO SCH (08:14)
[2022-04-24] MEDS: INSULIN LISPRO 100 UNITS/ML SQ PRN ×2 (11:42→17:50)
[2022-04-24 14:07] LABS: GLUCOMETER DEV NAME(LOC) 6N.2; GLUCOSE,POINT OF CARE 158 MG/DL (70-110)
[2022-04-24 16:15] VITALS: BP 153/71
[2022-04-24 20:02] LABS: GLUCOMETER DEV NAME(LOC) 6N.1; GLUCOSE,POINT OF CARE 241 MG/DL (70-110)
[2022-04-24 20:03] LABS: COVID AG,FIA SOURCE NASAL SWAB
== END 2022-04-24 20:15 | DRG 640 ==
LOC: EMS 10:56 → 6S 15:30
PROVIDERS: ADMIT Internal Medicine; ATTEND Internal Medicine
DX: R62.7 Adult failure to thrive (principal); E43 Unspecified severe protein-calorie malnutrition; C34.92 Malignant neoplasm of unspecified part of left bronchus or lung; E87.0 Hyperosmolality and hypernatremia; N17.9 Acute kidney failure, unspecified; M86.9 Osteomyelitis, unspecified; R64 Cachexia; B37.0 Candidal stomatitis; C34.91 Malignant neoplasm of unspecified part of right bronchus or lung; E11.65 Type 2 diabetes mellitus with hyperglycemia; F03.90 Unspecified dementia, unspecified severity, without behavioral disturbance, psychotic disturbance, mood disturbance, and anxiety; E11.69 Type 2 diabetes mellitus with other specified complication; K21.9 Gastro-esophageal reflux disease without esophagitis; M81.0 Age-related osteoporosis without current pathological fracture; Z20.822 Contact with and (suspected) exposure to COVID-19; I10 Essential (primary) hypertension; I49.5 Sick sinus syndrome; M19.90 Unspecified osteoarthritis, unspecified site; L89.159 Pressure ulcer of sacral region, unspecified stage; Z83.3 Family history of diabetes mellitus; Z82.49 Family history of ischemic heart disease and other diseases of the circulatory system; Z95.0 Presence of cardiac pacemaker; Z68.22 Body mass index [BMI] 22.0-22.9, adult; Z79.899 Other long term (current) drug therapy; Z74.01 Bed confinement status
CPT/HCPCS: 71045; 80048; 80053; 81001; 82962; 83605; 83735; 83880; 84100; 84484; 85025; 87040; 87086; 87804; 92526; 92610; 93005; 94640; 97110; 97162; 97530; 99291; J0696; J1644; J3480; J7030; J7040; J7060; 36415-L1; 36415-TC